=== PATIENT | male | born 1965 | race Caucasian/White ===

== ENCOUNTER 2016-07-09 08:35 | Emergency (ER) | payer OTHER ==
[~2016-07-09] VITALS: Ht 182.9 cm; Wt 68.0 kg
[2016-07-09 08:41] VITALS: Ht 182.9 cm; Wt 68.0 kg
[2016-07-09] MEDS ORDERED: HALOPERIDOL 5 MG INJ IM STA (08:46)
[2016-07-09] MEDS ORDERED: LORAZEPAM 2 MG INJ IM ONE (09:00)
[2016-07-09 09:48] LABS: ADD SCAN DIFF NO
[2016-07-09 10:03] LABS: BARBITURATES Negative (NEGATIVE); BENZODIAZEPINES Negative (NEGATIVE); CANNABINOIDS Negative (NEGATIVE); COCAINE Negative (NEGATIVE); OPIATES Negative (NEGATIVE)
[2016-07-09 10:14] LABS: ALBUMIN 3.9 g/dl (3.3-4.9); CHLORIDE 98 mmol/L (97-110)
[2016-07-09 10:15] LABS: POTASSIUM 3.7 mmol/L (3.5-5.1); SODIUM 135 mmol/L (135-144)
[2016-07-09 10:17] LABS: ALBUMIN/GLOBULIN RATIO 1.69; ALKALINE PHOSPHATASE 49 IU/L (42-121); ANION GAP 15 (8-16); ASPARTATE AMINO TRANSFERASE 43 IU/L (15-46); BILIRUBIN,INDIRECT 1.1 mg/dl (0-1.1); BILIRUBIN,TOTAL 1.1 mg/dl (0.2-1.3); BLOOD UREA NITROGEN 11 mg/dl (7-20); CARBON DIOXIDE 26 mmol/L (21-31); CREATININE 0.98 mg/dl (0.61-1.24); TOTAL PROTEIN 6.2 g/dl (6.1-8.1)
[2016-07-09 10:18] LABS: ALANINE AMINOTRANSFERASE 31 IU/L (13-69); CALCIUM 9.4 mg/dl (8.4-10.2); GLUCOSE 105 mg/dl (70-220)
--- NOTE | 2016-07-09 10:19 | ERA ---
ER Documentation Chief Complaint Date/Time DATE: 07/09/16 TIME: 10:15 Chief Complaint BIB MOTHER FOR HALLUCINATIONS , STATES THERE ARE PEOPLE FOLLOWING HIM HPI 50-year-old male who presents with his mother for hallucinations. The patient has a history of bipolar disorder he does not take medications. For the past 24 hours the patient has been agitated, he has not slept in several days. He is having delusions of "people are trying to get me, my family and my son.". The patient's mother states that he has been up all night looking out windows and keeping the entire family. The patient also states that he is hearing voices. He denies any suicidal or homicidal ideation. His mother states that she thinks that he may have taken a pill of something but she cannot be for sure. The patient is exquisitely agitated and hyperactive in the emergency department. Remainder of HPI is limited. ROS All systems reviewed and are negative except as per history of present illness. Medications Home Meds No Active Prescriptions or Reported Meds Allergies Allergies: Coded Allergies: No Known Allergy (Unverified , 07/09/16) PMhx/Soc Medical and Surgical Hx: pt denies Surgical Hx History of Surgery: No Anesthesia Reaction: No Hx Neurological Disorder: No Hx Respiratory Disorders: No Hx Cardiac Disorders: No Hx Psychiatric Problems: Yes (BIPOLAR, DEPRESSION) Hx Miscellaneous Medical Probl: No Hx Alcohol Use: Yes (REGULAR/HEAVY USE OFF AND ON) Hx Substance Use: Yes (METH) Hx Tobacco Use: Yes Smoking Status: Current every day smoker FmHx Family History: No diabetes Physical Exam Vitals Vital Signs Date Time Temp Pulse Resp B/P Pulse Ox O2 Delivery O2 Flow Rate FiO2 07/09/16 11:00 98.0 62 16 102/66 99 Room Air 07/09/16 09:54 98.0 77 19 98/63 96 Room Air 07/09/16 08:41 98.0 98 18 160/90 98 Physical Exam General: Extremely active, hypermobile, hyperactive, agitated, delusional, seems to respond to internal stimuli Head: Normocephalic, atraumatic. Eyes: Pupils equally reactive, EOM intact ENT: Moist mucous membranes Neck: Supple, no lymphadenopathy Respiratory: Lungs clear bilaterally, no distress Cardiovascular: Slight tachycardia, no murmurs, rubs, or gallops Abdominal: Soft, non-tender, non-distended, no peritoneal signs : Deferred MSK: No edema, no unilateral swelling, 5/5 strength Neurologic: Moving all 4 extremities, limited exam Skin: No rash Psych: Flight of ideas, delusions of persecution, hallucinations, agitation, leeann Result Diagram: 07/09/1692407/09/16924 Results 24 hrs Laboratory Tests Test 07/09/16 09:13 07/09/16 09:25 Urine Amphetamines Screen POSITIVE Urine Barbiturates Negative Urine Benzodiazepines Screen Negative Urine Cannabinoids Negative Urine Cocaine Screen Negative Urine Opiates Screen Negative Alanine Aminotransferase (ALT/SGPT) 31IU/L Albumin 3.9g/dl Albumin/Globulin Ratio 1.69 Alkaline Phosphatase 49IU/L Anion Gap 15 Aspartate Amino Transf (AST/SGOT) 43IU/L Basophils # 0.010^3/ul Basophils % 0.4% Blood Urea Nitrogen 11mg/dl Calcium Level 9.4mg/dl Carbon Dioxide Level 26mmol/L Chloride Level 98mmol/L Creatinine 0.98mg/dl Direct Bilirubin 0.00mg/dl Eosinophils # 0.110^3/ul Eosinophils % 0.7% Ethyl Alcohol Level < 10.0mg/dl Globulin 2.30g/dl Glucose Level 105mg/dl Hematocrit 36.4% Hemoglobin 12.8g/dl Indirect Bilirubin 1.1mg/dl Lymphocytes # 0.810^3/ul Lymphocytes % 9.8% Mean Corpuscular Hemoglobin 33.7pg Mean Corpuscular Hemoglobin Concent 35.2g/dl Mean Corpuscular Volume 95.8fl Mean Platelet Volume 9.3fl Monocytes # 0.810^3/ul Monocytes % 9.3% Neutrophils # 6.410^3/ul Neutrophils % 79.6% Nucleated Red Blood Cells # 0.010^3/ul Nucleated Red Blood Cells % 0.0/100WBC Platelet Count 85696^3/UL Potassium Level 3.7mmol/L Red Blood Count 3.8010^6/ul Red Cell Distribution Width 12.3% Sodium Level 135mmol/L Total Bilirubin 1.1mg/dl Total Protein 6.2g/dl White Blood Count 8.110^3/ul Current Medications Medications (Trade) Dose Ordered Sig/Parris Route PRN Reason Start Time Stop Time Status Last Admin Dose Admin Haloperidol (Haldol) 5 mg ONCE STAT IM 07/09/16 08:46 07/09/16 08:49 DC 07/09/16 09:03 Lorazepam (Ativan) 1 mg ONCE ONCE IM 07/09/16 09:00 07/09/16 09:01 DC 07/09/16 09:03 Procedures/MDM LAB INTERPRETATION: No acute process, positive amphetamines MEDICAL DECISION MAKING: The patient's presentation is consistent with underlying psychiatric illness and likely exacerbation of this illness and/or psychosis. The patient's presentation is very consistent with acute manic episode with elements of psychosis. The patient initially came in with a knife on his hip. This was given to his mother. The patient is extremely agitated, aggressive and will benefit from medication. The patient is agreeable to medication administration. I have a much lower clinical concern for delirium or acute organic pathology such as toxicologic, metabolic, ischemic, intracranial hemorrhage, infectious process. However, we must rule this out prior to relying a diagnosis of underlying psychiatric illness. The patient's workup will include medical screening examination, laboratory analysis, and diagnostic imaging such as EKG, chest x-ray or CT brain as indicated. If the patient's medical examination and laboratory analysis do not reveal acute organic pathology the patient will be medically cleared for psychiatric evaluation. ER COURSE: The patient was given Haldol 5, Ativan 1. The patient has improved agitation is now sleeping. The patient's laboratory analysis, diagnostic imaging do not suggest an acute organic pathology. At this time I believe the patient's presentation is very consistent with underlying psychiatric illness. The patient is medically cleared for psychiatric evaluation. I kept the patient and/or family informed of laboratory and diagnostic imaging results throughout the emergency room course. CONSULTATION: Psychiatric consultation: Telemetry medicine psychiatry has been consulted on this case to evaluate the patient for possible acute psychiatric illness that would require inpatient hospitalization. DISPOSITION PLAN: Pending psychiatric evaluation but strong recommendation for hospitalization. Departure Diagnosis: Primary Impression: Leeann Additional Impression: Acute psychosis Condition: Stable SWAPNA JOHNSON MD Jul 09, 2016 10:18
[2016-07-09 10:21] LABS: BASOPHILS % 0.4 % (0.0-2.0); EOSINOPHILS # 0.1 10^3/ul (0.0-0.5); EOSINOPHILS % 0.7 % (0.0-7.0); HEMATOCRIT 36.4 % (42.0-52.0); HEMOGLOBIN 12.8 g/dl (14.0-18.0); LYMPHOCYTES # 0.8 10^3/ul (0.8-2.9); LYMPHOCYTES % 9.8 % (15.0-51.0); MEAN CORPUSCULAR HEMOGLOBIN 33.7 pg (29.0-33.0); MEAN CORPUSCULAR HGB CONC 35.2 g/dl (32.0-37.0); MEAN CORPUSCULAR VOLUME 95.8 fl (82.0-101.0); MEAN PLATELET VOLUME 9.3 fl (7.4-10.4); MONOCYTE # 0.8 10^3/ul (0.3-0.9); MONOCYTES % 9.3 % (0.0-11.0); NEUTROPHIL # 6.4 10^3/ul (1.6-7.5); NEUTROPHILS % 79.6 % (39.0-77.0); PLATELET COUNT 272 10^3/UL (140-415); RED CELL DISTRIBUTION WIDTH 12.3 % (11.5-14.5); WHITE BLOOD COUNT 8.1 10^3/ul (4.8-10.8)
[2016-07-09 10:22] LABS: ETHANOL < 10.0 mg/dl
--- NOTE | 2016-07-09 17:12 | PSY ---
Date/Time of Note Date/Time of Note DATE: 07/09/16 TIME: 20:05 Psychiatric Subjective Eval Subjective Evaluation Patient location: emergency Chief Complaint: BIB MOTHER FOR HALLUCINATIONS , STATES THERE ARE PEOPLE FOLLOWING HIM Reason for consult: The patient is a 50 yo male with bipolar disorder bib mother for acute andrew History of present illness The patient is a 50 yo male with bipolar disorder and amphetamine abuse bib mother for acute leeann. Pt was a very limited historian, went to sleep after 2 minute interview and would not wake up. For at least several days he has not been sleeping, has been "aggressive" towards "loved ones," (mother reports she does not feel safe around him), irritable, agitated, experiencing AH as well as paranoia. Using methamphetamine. Required haloperidol/ativan in the ED. Would provide no further hx at all except that he was supposed to be taking Depakote and Paxil and gabapentin but has not been taking. Hospitalization: no Medical history Problems Medical Problems: (1) Acute psychosis Status: Acute (2) Leeann Status: Acute Allergies: Coded Allergies: No Known Allergy (Unverified , 07/09/16) Social History Marital status: single Psychiatric Objective Eval Mental Status Examination: Appearance: Disheveled Eye Contact: Poor Psychomotor Activity: Agitated Behavior: Suspicious Speech: Disorganized AFFECT: Constricted Mood: Other Though Process: Loose Thought Content: Delusions Suicidal: No Homicidal: No On 72 hour hold: Yes Orientation: No orientation Cognition: Drowsy Insight: Mild Judgement: Impared Attention Span: Distractible (pt was in bed, tried to sleep adn not answer MD) Laboratory Results Laboratory Tests Test 07/09/16 09:13 07/09/16 09:25 Urine Amphetamines Screen POSITIVE Urine Barbiturates Negative Urine Benzodiazepines Screen Negative Urine Cannabinoids Negative Urine Cocaine Screen Negative Urine Opiates Screen Negative Alanine Aminotransferase (ALT/SGPT) 31IU/L Albumin 3.9g/dl Albumin/Globulin Ratio 1.69 Alkaline Phosphatase 49IU/L Anion Gap 15 Aspartate Amino Transf (AST/SGOT) 43IU/L Basophils # 0.010^3/ul Basophils % 0.4% Blood Urea Nitrogen 11mg/dl Calcium Level 9.4mg/dl Carbon Dioxide Level 26mmol/L Chloride Level 98mmol/L Creatinine 0.98mg/dl Direct Bilirubin 0.00mg/dl Eosinophils # 0.110^3/ul Eosinophils % 0.7% Ethyl Alcohol Level < 10.0mg/dl Globulin 2.30g/dl Glucose Level 105mg/dl Hematocrit 36.4% Hemoglobin 12.8g/dl Indirect Bilirubin 1.1mg/dl Lymphocytes # 0.810^3/ul Lymphocytes % 9.8% Mean Corpuscular Hemoglobin 33.7pg Mean Corpuscular Hemoglobin Concent 35.2g/dl Mean Corpuscular Volume 95.8fl Mean Platelet Volume 9.3fl Monocytes # 0.810^3/ul Monocytes % 9.3% Neutrophils # 6.410^3/ul Neutrophils % 79.6% Nucleated Red Blood Cells # 0.010^3/ul Nucleated Red Blood Cells % 0.0/100WBC Platelet Count 93270^3/UL Potassium Level 3.7mmol/L Red Blood Count 3.8010^6/ul Red Cell Distribution Width 12.3% Sodium Level 135mmol/L Total Bilirubin 1.1mg/dl Total Protein 6.2g/dl White Blood Count 8.110^3/ul Assessment and Plan Assessment/Diagnosis Dickson I: bipolar disorder manic and psychotic, methamphetamine abuse Recommendation/Plan Medication Management -would restart depakote 500mg bid as well as Abilify 5mg po qd -for mild or moderate agitation haldol 2mg po ativan 1mg po cogentin 1mg po -for severe agitation haldol 5mg IM, ativan 2mg im, cogentin 1mg im -pt requires inpatient admission as he is a danger to others and unable to care for self in community -would obtain tsh, rpr, b12 -plan d/w STANISLAV Pinon Jul 09, 2016 17:12
--- NOTE | 2016-07-10 11:55 | PSY ---
Date/Time of Note Date/Time of Note DATE: 07/10/16 TIME: 14:46 Psychiatric Subjective Eval Subjective Evaluation Patient location: emergency Chief Complaint: BIB MOTHER FOR HALLUCINATIONS , STATES THERE ARE PEOPLE FOLLOWING HIM Reason for consult: The patient is a 50 yo male with bipolar disorder bib mother for acute andrew History of present illness No change in last session yesterday except that pt is awake. MD was reconsulted as staff reported pt was feeling better. The HPI is as before. In addition, pt confirmed his manic/psychotic and dangerous behavior. The only addition was that he is very extremel agitated and irritable and threatened to leave if he does not obtain a cigarette. Hospitalization: no Medical history Problems Medical Problems: (1) Acute psychosis Status: Acute (2) Leeann Status: Acute Allergies: Coded Allergies: No Known Allergy (Unverified , 07/09/16) Social History Marital status: single Psychiatric Objective Eval Mental Status Examination: Appearance: Poor Hygiene Eye Contact: Fair Psychomotor Activity: Agitated Behavior: Agitated Speech: Pressured AFFECT: Libile Mood: Irritable Though Process: Loose Thought Content: Delusions Suicidal: No Homicidal: No On 72 hour hold: Yes Orientation: x4 Cognition: Alert Insight: Impared Judgement: Impared Attention Span: Distractible (As yesterday though today pt is alert and now sleeping. Remains clealry and overtly manic.) Laboratory Results Laboratory Tests Test 07/09/16 09:13 07/09/16 09:25 Urine Amphetamines Screen POSITIVE Urine Barbiturates Negative Urine Benzodiazepines Screen Negative Urine Cannabinoids Negative Urine Cocaine Screen Negative Urine Opiates Screen Negative Alanine Aminotransferase (ALT/SGPT) 31IU/L Albumin 3.9g/dl Albumin/Globulin Ratio 1.69 Alkaline Phosphatase 49IU/L Anion Gap 15 Aspartate Amino Transf (AST/SGOT) 43IU/L Basophils # 0.010^3/ul Basophils % 0.4% Blood Urea Nitrogen 11mg/dl Calcium Level 9.4mg/dl Carbon Dioxide Level 26mmol/L Chloride Level 98mmol/L Creatinine 0.98mg/dl Direct Bilirubin 0.00mg/dl Eosinophils # 0.110^3/ul Eosinophils % 0.7% Ethyl Alcohol Level < 10.0mg/dl Globulin 2.30g/dl Glucose Level 105mg/dl Hematocrit 36.4% Hemoglobin 12.8g/dl Indirect Bilirubin 1.1mg/dl Lymphocytes # 0.810^3/ul Lymphocytes % 9.8% Mean Corpuscular Hemoglobin 33.7pg Mean Corpuscular Hemoglobin Concent 35.2g/dl Mean Corpuscular Volume 95.8fl Mean Platelet Volume 9.3fl Monocytes # 0.810^3/ul Monocytes % 9.3% Neutrophils # 6.410^3/ul Neutrophils % 79.6% Nucleated Red Blood Cells # 0.010^3/ul Nucleated Red Blood Cells % 0.0/100WBC Platelet Count 63236^3/UL Potassium Level 3.7mmol/L Red Blood Count 3.8010^6/ul Red Cell Distribution Width 12.3% Sodium Level 135mmol/L Total Bilirubin 1.1mg/dl Total Protein 6.2g/dl White Blood Count 8.110^3/ul Assessment and Plan Recommendation/Plan Medication Management As yesterday. Today, pt clearly and overtly manic, very irritable, pressured, agitated. Remains unable to care for himself and at high/imminent risk of harm to others. He is not better today but possibly worse or the same. He reports he has not received meds today. If not, pt should start receiving meds [place]. Without meds he will decompensate quickly (within hours). Pls see previous note for med recs.If he has been receiving meds, this MD recommends giving him a dose of meds recommended for mild to moderate agitation. Would also recommend smoke breaks if possible. This was d/w Bartolo the nurse. STANISLAV BABCOCK Jul 10, 2016 11:54
[2016-07-10] MEDS: DIVALPROEX (EC) 500 MG TAB PO SCH ×2 (12:20→21:42)
[2016-07-10] MEDS: ARIPIPRAZOLE 5 MG TAB PO SCH (12:51)
[2016-07-11] MEDS: DIVALPROEX (EC) 500 MG TAB PO SCH ×2 (13:08→22:17)
[2016-07-11] MEDS: ARIPIPRAZOLE 5 MG TAB PO SCH (13:08)
[2016-07-11 17:43] LABS: ADD UMIC YES; URINE BILIRUBIN (Dip) NEGATIVE (NEGATIVE); URINE BLOOD (Dip) 1+ (NEGATIVE); URINE COLOR YELLOW (YELLOW); URINE GLUCOSE (Dip) NEGATIVE (NEGATIVE); URINE KETONES (Dip) 15 (NEGATIVE); URINE LEUKOCYTE ESTERASE (Dip) NEGATIVE (NEGATIVE); URINE NITRITE (Dip) NEGATIVE (NEGATIVE); URINE TOTAL PROTEIN (Dip) NEGATIVE (NEGATIVE); URINE UROBILINOGEN (Dip) 1.0 E.U./dL (0.1-1.0)
[2016-07-11 18:30] VITALS: BP 102/62; PULSE 62; RESP 18; TEMP 98.5
[2016-07-11 18:30] LABS: BACTERIA,URINE FEW; MUCUS,URINE FEW
[2016-07-11] MEDS ORDERED: NICOTINE (21 MG/24 HR) PATCH TRANSDERM ONE (18:30)
== END 2016-07-11 20:37 ==
LOC: E/R 08:35
DX: F30.9 Manic episode, unspecified (principal); R40.2252 Coma scale, best verbal response, oriented, at arrival to emergency department; F23 Brief psychotic disorder; F17.210 Nicotine dependence, cigarettes, uncomplicated; R40.2142 Coma scale, eyes open, spontaneous, at arrival to emergency department; R40.2362 Coma scale, best motor response, obeys commands, at arrival to emergency department
CPT/HCPCS: 80053; 80306; 80307; 81001; 85025; 93005; J1630; J2060; Z7610; 36415; 81003; 96372